=== PATIENT | female | born 2000 | race Caucasian/White ===

== ENCOUNTER → 2023-10-29 | Outpatient (CLI) | payer OTHER ==
[~2023-10-29] MED LIST: AMOXICILLIN500 MG PO; AMOXIL250 MG/5 M PO; CIPRODEX 0.3%-7.5 ML OT; GADOTERATE MEGLUMINE 10 MMOL/20 ML VIAL IV ONE; MIDOL CRAMP FO200 MG PO; MOTRIN CHI100 MG/5 M PO; ZYRTEC5 MG PO
== END | disposition home or self-care (01) ==
LOC: MRI 01:30
PROVIDERS: ATTEND Orthopaedic Surgery
DX: H46.01 Optic papillitis, right eye (principal); J34.2 Deviated nasal septum

== ENCOUNTER → 2023-11-03 | Outpatient (CLI) | payer OTHER | END | disposition home or self-care (01) | LOC: MRI 13:33 | PROVIDERS: ATTEND Orthopaedic Surgery | DX: G93.89 Other specified disorders of brain (principal); H46.01 Optic papillitis, right eye ==

== ENCOUNTER → 2023-11-15 | Outpatient (CLI) | payer OTHER ==
[~2023-11-15] MED LIST changes: +HYDROXYZINE HCL25 MG PO; +TESTOSTERONE75 G1 T
== END | disposition home or self-care (01) ==
LOC: MRI 02:51
PROVIDERS: ATTEND Psychiatry & Neurology Neurology
DX: G37.9 Demyelinating disease of central nervous system, unspecified (principal)

== ENCOUNTER → 2024-02-02 | Outpatient (CLI) | payer OTHER | LOC: MRI 10:00 | PROVIDERS: ATTEND Psychiatry & Neurology Neurology | DX: G93.89 Other specified disorders of brain (principal); G37.9 Demyelinating disease of central nervous system, unspecified ==

== ENCOUNTER 2025-05-04 12:31 | Emergency (ER) | payer OTHER ==
[~2025-05-04] VITALS: Ht 165.1 cm; Wt 83.9 kg
[~2025-05-04 12:31] MED LIST changes: -GADOTERATE MEGLUMINE 10 MMOL/20 ML VIAL IV ONE
[2025-05-04] MEDS ORDERED: PREDNISONE20 M1 PO (14:16)
[2025-05-04] MEDS ORDERED: Water, Sterile 10 ML VIAL ONE (14:51)
== END 2025-05-04 14:24 | disposition home or self-care (01) ==
LOC: ED 12:31
DX: S29.012A Strain of muscle and tendon of back wall of thorax, initial encounter (principal); Z91.048 Other nonmedicinal substance allergy status; Z79.899 Other long term (current) drug therapy; Z96.22 Myringotomy tube(s) status; X50.0XXA Overexertion from strenuous movement or load, initial encounter; Y93.89 Activity, other specified; Y92.89 Other specified places as the place of occurrence of the external cause; Y99.8 Other external cause status